=== PATIENT | male | born 1965 | race Caucasian/White ===

== ENCOUNTER 2022-01-31 16:31 | Emergency (ER) | payer OTHER ==
[~2022-01-31] VITALS: Ht 180.3 cm; Wt 136.0 kg
[2022-01-31 16:35] VITALS: BP 149/92
[2022-01-31] MEDS ORDERED: ketorolac trometh. 30mg/ml inj. IM ONE (18:25)
[2022-01-31] MEDS ORDERED: ketorolac tromethamine 15mg/ml inj. IM ONE (18:25)
== END 2022-01-31 18:42 | disposition home or self-care (01) ==
LOC: ER 16:31
DX: S93.401A Sprain of unspecified ligament of right ankle, initial encounter (principal); S60.812A Abrasion of left wrist, initial encounter; M25.571 Pain in right ankle and joints of right foot; V87.7XXA Person injured in collision between other specified motor vehicles (traffic), initial encounter; Y93.89 Activity, other specified; Y92.89 Other specified places as the place of occurrence of the external cause; Y99.8 Other external cause status
CPT/HCPCS: 29515; 73110; 73610; 73630; 96372; 99284; J1885